=== PATIENT | female | born 1975 | race Caucasian/White ===

== ENCOUNTER 2021-10-02 11:56 | Emergency (ER) | payer OTHER ==
[2021-10-02] MEDS ORDERED: PERCOCET 5/325 T1 EA PO (14:21)
[2021-10-02] MEDS ORDERED: ZOFRAN4 MG PO (14:44)
== END 2021-10-02 14:32 | disposition home or self-care (01) ==
LOC: ER1 11:56
DX: K03.81 Cracked tooth (principal); K02.9 Dental caries, unspecified; J45.909 Unspecified asthma, uncomplicated; Z88.0 Allergy status to penicillin
CPT/HCPCS: 96372; 99282; J1885

== ENCOUNTER 2022-07-27 14:40 | Emergency (ER) | payer OTHER ==
[~2022-07-27 14:40] MED LIST: CLEOCIN HCL300 MG PO; PERCOCET 5/325 T1 EA PO; ZOFRAN4 MG PO
[2022-07-27 15:31] LABS: RED BLOOD COUNT 4.39 M/UL (4.00-5.10)
[2022-07-27 15:51] LABS: BUN/CREATININE RATIO 14 (0-10)
[2022-07-28] MEDS ORDERED: AMOX TR-K CLV1 EAC4 PO (00:05)
[2022-07-28] MEDS ORDERED: BENTYL 20MG TAB20 MG PO (00:05)
[2022-07-28] MEDS ORDERED: ZOFRAN ODT 4 MG4 MG PO (00:05)
== END 2022-07-28 00:20 | disposition home or self-care (01) ==
LOC: ER1 14:40
PROVIDERS: Emergency Medicine
DX: K80.00 Calculus of gallbladder with acute cholecystitis without obstruction (principal); R42 Dizziness and giddiness; Z20.822 Contact with and (suspected) exposure to COVID-19
CPT/HCPCS: 70450; 70496; 70498; 71250; 80053; 81001; 83690; 83735; 84703; 85025; 93005; 96361; 96374; 99284; J0696; J2405; Q9967; U0002